=== PATIENT | female | born 1930 | race Asian ===

== ENCOUNTER 2017-04-16 08:36 | Inpatient (IN) | payer OTHER, MEDICARE ==
[~2017-04-16] VITALS: Ht 154.9 cm; Wt 45.4 kg
[~2017-04-16 08:36] MED LIST: ACT30 PO; CARVEDILOL12.5 M1 PO; CAT0.1 PO; CLONIDINE HCL0.1 MG PO; COREG CR10 MG PO; COZAAR25 M PO; FERROUS SULFAT PO; FUROSEMIDE40 MG PO; HYDROCHLOROTH12.5 M1 PO; HYDROCHLOROTHIAZIDE PO; NIFEDIPINE ER60 MG PO; SIMVASTATIN20 MG PO; SOD650 PO; SODIUM BICARBO650 MG PO; VIS50 PO
[2017-04-16 08:49] VITALS: Ht 154.9 cm; Wt 45.4 kg
[2017-04-16 09:34] LABS: BASOPHIL % 0.5 % (0-2); PLATELET COUNT 236 x10^3mcL (130-400); RED CELL DISTRIBUTION WIDTH 13.5 % (11.5-14.5)
[2017-04-16 10:04] LABS: ALKALINE PHOSPHATASE 112 U/L (46-116); ALT/SGPT 15 U/L (14-59); AST/SGOT 20 U/L (15-37); BILIRUBIN TOTAL 0.3 mg/dL (0.20-1.00); CARBON DIOXIDE 19.2 mmol/L (21-32); CHLORIDE SERUM 102 mmol/L (98-107); GLUCOSE SERUM 149 mg/dL (74-106); POTASSIUM SERUM 4.8 mmol/L (3.5-5.1); SODIUM SERUM 136 mmol/L (136-145); TOTAL PROTEIN, SERUM 6.6 g/dL (6.4-8.2)
[2017-04-16 10:13] LABS: ALBUMIN 2.8 g/dL (3.4-5.0); CREATININE SERUM 4.4 mg/dL (0.6-1.0)
[2017-04-16 10:47] LABS: MAGNESIUM 1.6 mg/dL (1.8-2.4); PHOSPHOROUS 4.1 mg/dL (2.5-4.9)
[2017-04-16 10:51] LABS: T3 TOTAL 0.82 ng/mL
[2017-04-16 10:54] LABS: FREE T4 1.65 ng/dL (0.76-1.46); T4(THYROXINE) 10.3 ug/dL (4.7-13.3)
[2017-04-16 11:18] LABS: CHOLESTEROL/HDL RATIO 3.4
[2017-04-16] MEDS ORDERED: HYDROCHLOROTH12.5 M2 PO (11:22)
[2017-04-16 12:35] VITALS: BP 143/57
[2017-04-16 13:15] VITALS: BP 145/52
[2017-04-16 14:14] LABS: IRON 14 ug/dL (50-170); TOTAL IRON BINDING CAPACITY 187 ug/dL (250-450)
[2017-04-16 14:21] LABS: RED BLOOD CELLS 2.52 M/mm3 (4.10-5.10)
[2017-04-16 14:50] VITALS: BP 145/52
[2017-04-16 17:07] VITALS: BP 116/39
[2017-04-16 19:32] VITALS: BP 142/55
[2017-04-16 21:17] VITALS: BP 129/49
[2017-04-17 05:09] LABS: microscopic required? YES; urine erythrocyte TRACE (NEGATIVE)
[2017-04-17 05:43] VITALS: BP 127/50
[2017-04-17 07:30] LABS: CARBON DIOXIDE 14.9 mmol/L (21-32); CHLORIDE SERUM 104 mmol/L (98-107); GLUCOSE SERUM 192 mg/dL (74-106); MAGNESIUM 1.5 mg/dL (1.8-2.4); POTASSIUM SERUM 5.4 mmol/L (3.5-5.1); SODIUM SERUM 136 mmol/L (136-145)
[2017-04-17 07:35] LABS: CALCIUM 7.8 mg/dL (8.5-10.1)
[2017-04-17 07:41] LABS: CREATININE SERUM 4.3 mg/dL (0.6-1.0)
[2017-04-17 07:46] LABS: BASOPHIL % 0.4 % (0-2); PLATELET COUNT 221 x10^3mcL (130-400); RED CELL DISTRIBUTION WIDTH 12.5 % (11.5-14.5)
[2017-04-17 09:52] VITALS: BP 153/54
[2017-04-17 16:00] VITALS: BP 146/58
[2017-04-17 16:32] VITALS: BP 135/50
[2017-04-17 16:37] LABS: CARBON DIOXIDE 15.7 mmol/L (21-32); CHLORIDE SERUM 106 mmol/L (98-107); GLUCOSE SERUM 126 mg/dL (74-106); SODIUM SERUM 139 mmol/L (136-145)
[2017-04-17 16:39] LABS: CREATININE SERUM 4.2 mg/dL (0.6-1.0)
[2017-04-17] MEDS ORDERED: LEVOFLOXACIN750 M1 PO (18:38)
[2017-04-17] MEDS ORDERED: CLINDAMYCIN HC300 MG PO (18:38)
[2017-04-17] MEDS ORDERED: LIPI10 PO (18:38)
[2017-04-17] MEDS ORDERED: BD LACTINEX1.4 MG PO (18:39)
[2017-04-17 18:56] VITALS: BP 135/50
== END 2017-04-17 20:29 | disposition home or self-care (01) | DRG 133 ==
LOC: ED 08:36 → DU 10:04
PROVIDERS: Emergency Medicine; Family Medicine
DX: J96.00 Acute respiratory failure, unspecified whether with hypoxia or hypercapnia (principal); J69.0 Pneumonitis due to inhalation of food and vomit; N17.0 Acute kidney failure with tubular necrosis; G93.41 Metabolic encephalopathy; I50.43 Acute on chronic combined systolic (congestive) and diastolic (congestive) heart failure; E83.42 Hypomagnesemia; I36.1 Nonrheumatic tricuspid (valve) insufficiency; E44.0 Moderate protein-calorie malnutrition; E05.90 Thyrotoxicosis, unspecified without thyrotoxic crisis or storm; G30.9 Alzheimer's disease, unspecified; F02.80 Dementia in other diseases classified elsewhere, unspecified severity, without behavioral disturbance, psychotic disturbance, mood disturbance, and anxiety; I35.0 Nonrheumatic aortic (valve) stenosis; I12.9 Hypertensive chronic kidney disease with stage 1 through stage 4 chronic kidney disease, or unspecified chronic kidney disease; N18.9 Chronic kidney disease, unspecified; D63.1 Anemia in chronic kidney disease; E78.5 Hyperlipidemia, unspecified; M54.5 Low back pain; Z68.1 Body mass index [BMI] 19.9 or less, adult
CPT/HCPCS: 36600; 82962; 83880; 84439; 87804; J0696; J1100; J1885; J1956; J2800; J3475; J3490; J7030; J7613; J7620; J7644; Q0092

== ENCOUNTER 2018-06-14 23:10 | Emergency (ER) | payer MEDICARE, MEDICAID ==
[~2018-06-14] VITALS: Ht 152.4 cm; Wt 46.3 kg
[~2018-06-14 23:10] MED LIST changes: +BD LACTINEX1.4 MG PO; +CLINDAMYCIN HC300 MG PO; +HYDROCHLOROTH12.5 M2 PO; +LEVOFLOXACIN750 M1 PO; +LIPI10 PO
[2018-06-14 23:14] VITALS: Ht 152.4 cm; Wt 46.3 kg
[2018-06-15 00:33] VITALS: BP 156/78
== END 2018-06-15 00:26 | disposition short-term general hospital (02) ==
LOC: ED 23:10
DX: I21.9 Acute myocardial infarction, unspecified (principal); I11.0 Hypertensive heart disease with heart failure; I50.9 Heart failure, unspecified; I12.0 Hypertensive chronic kidney disease with stage 5 chronic kidney disease or end stage renal disease; N18.6 End stage renal disease
CPT/HCPCS: 83880; 87804; C9113; J1940; J2405; J3490; Q0092